=== PATIENT | female | born 1965 | race Hispanic/Latino ===

== ENCOUNTER 2019-01-12 08:10 | Inpatient (IN) | payer MEDICARE, MEDICAID ==
[2019-01-12 08:12] VITALS: BMI 26.6
[2019-01-12 08:13] VITALS: O2SAT 100
--- NOTE | 2019-01-12 08:50 | ED PDOC ---
HPI: Psych/Substance Abuse Time Seen by Provider: 01/12/19 08:11 Chief Complaint (Nursing): Psychiatric Evaluation Chief Complaint (Provider): Psychiatric Evaluation History Per: Patient History/Exam Limitations: no limitations Onset/Duration Of Symptoms: Hrs Current Symptoms Are (Timing): Still Present Suicide/Self Injury Attempted (Context): None Associated Symptoms: Suicidal Thoughts. denies: Suicidal Plan Additional Complaint(s): 53 year old female with a history of seizures presents to the ED for a psychiatric evaluation. Patient reports she wants to kill herself and wants to hurt her aid, Dorcas. She denies any intake of pills or injury to herself. Also denies fever, chest pain, cough, shortness of breath, nausea, vomiting, abdominal pain, diarrhea, urinary symptoms, bruising, numbness or weakness. PMD: Non [facility] Provider Past Medical History Reviewed: Historical Data, Nursing Documentation, Vital Signs Vital Signs: Last Vital Signs Temp 97.7 F 01/12/19 08:12 Pulse 88 01/12/19 08:12 Resp 17 01/12/19 08:12 BP 116/66 01/12/19 08:12 Pulse Ox 100 01/12/19 08:12 - Medical History PMH: Anxiety, Bipolar Disorder, Depression, HTN, Hypothyroidism, Migraine, Chronic Kidney Disease (STAGE 3 ACCORDING TO HISTORY ON CHART [facility]), Schizophrenia, Seizures (DOES NOT KNOW WHEN LAST SEIZURE WAS) Denies: Diabetes, Hepatitis, HIV, Sexually Transmitted Disease - Surgical History Surgical History: Tonsillectomy - Family History Family History: States: Unknown Family Hx - Social History Current smoker - smoking cessation education provided: No Alcohol: None Drugs: Denies - Immunization History Hx Tetanus Toxoid Vaccination: Yes Hx Influenza Vaccination: Yes Hx Pneumococcal Vaccination: No - Home Medications Home Medications: Ambulatory Orders Medication Instructions Recorded Sodium Bicarbonate Tab 650 mg PO TID #90 tab 11/23/15 Sevelamer Carbonate [Renvela] 800 mg PO 0700,1800 12/03/15 aMILoride [aMILoride 5 mg Tab] 5 mg PO BID 12/03/15 Aripiprazole [Abilify] 30 mg PO HS 01/12/19 Calcium Carbonate/Vitamin D3 1 tab PO DAILY 01/12/19 [Oysco 500-Vit D3 200 Tablet] Cholecalciferol (Vitamin D3) 2,000 unit PO DAILY 01/12/19 [Vitamin D3] Divalproex [Depakote DR] 500 mg PO TID 01/12/19 LORazepam [Ativan] 1 mg PO DAILY PRN 01/12/19 LORazepam [Ativan] 1 mg PO DAILY@1200 01/12/19 Levothyroxine [Synthroid] 75 mcg PO DAILY@0730 01/12/19 Nystatin [Nyamyc] 1 appl TOP Q12 01/12/19 QUEtiapine [Seroquel] 100 mg PO Q12 01/12/19 Topiramate [Topamax] 200 mg PO Q12 01/12/19 - Allergies Allergies/Adverse Reactions: Allergies Allergy/AdvReac Type Severity Reaction Status Date / Time No Known Allergies Allergy Verified 05/23/16 12:49 Review of Systems ROS Statement: Except As Marked, All Systems Reviewed And Found Negative Constitutional: Negative for: Fever Cardiovascular: Negative for: Chest Pain Respiratory: Negative for: Cough, Shortness of Breath Gastrointestinal: Negative for: Nausea, Vomiting, Abdominal Pain, Diarrhea Genitourinary Female: Negative for: Dysuria, Frequency, Incontinence, Hematuria Skin: Negative for: Bruising Neurological: Negative for: Weakness, Numbness Psych: Positive for: Suicidal ideation, Other (homicidal ideation ) Physical Exam - Reviewed Nursing Documentation Reviewed: Yes Vital Signs Reviewed: Yes - Physical Exam Appears: Positive for: Non-toxic, No Acute Distress Head Exam: Positive for: ATRAUMATIC, NORMAL INSPECTION, NORMOCEPHALIC Skin: Positive for: Normal Color, Warm, Dry. Negative for: Rash Eye Exam: Positive for: EOMI, Normal appearance, PERRL ENT: Positive for: Normal ENT Inspection Neck: Positive for: Normal, Painless ROM, Supple. Negative for: Decreased ROM Cardiovascular/Chest: Positive for: Regular Rate, Rhythm. Negative for: Murmur Respiratory: Positive for: Normal Breath Sounds. Negative for: Respiratory Distress Gastrointestinal/Abdominal: Positive for: Normal Exam, Soft. Negative for: Tenderness Back: Positive for: Normal Inspection Extremity: Positive for: Normal ROM. Negative for: Tenderness, Pedal Edema, Deformity Neurological/Psych: Positive for: Awake, Alert, Normal Tone, Oriented (x3) - Laboratory Results Result Diagrams: 01/12/19 08:55 01/12/19 08:55 Interpretation Of Abn Labs: no acute - ECG O2 Sat by Pulse Oximetry: 100 (RA) Pulse Ox Interpretation: Normal - Progress ED Course And Treament: 1515: Stable. AAOx3. Dr. June aware and will fu crisis. Medical Decision Making Medical Decision Making: Time: 841 Plan: EKG Alcohol serum CMP Drug screen Crisis evaluation Urine dipstick CBC w/ differential 1:1 Observation Reevaluation Scribe Attestation: Documented by Mandy Valenzuela, acting as a scribe for Endy Pink MD Provider Scribe Attestation: All medical record entries made by the Scribe were at my direction and personally dictated by me. I have reviewed the chart and agree that the record accurately reflects my personal performance of the history, physical exam, medical decision making, and the department course for this patient. I have also personally directed, reviewed, and agree with the discharge instructions and disposition. Disposition - Clinical Impression Clinical Impression: Depression - Patient ED Disposition Is Patient to be Admitted: Transfer of Care - Disposition Disposition: Transfer of Care Disposition Time: 15:15 Condition: STABLE Patient Signed Over To: Lorrei June
[2019-01-12 09:34] LABS: BASO # 0.1 K/uL (0.0-0.2); BASO % 0.9 % (0.0-2.0); EOS # 0.1 K/uL (0.0-0.7); EOS % 1.6 % (0.0-4.0); HEMOGLOBIN 14.6 g/dL (12.0-16.0); LYMPH # 0.8 K/uL (1.0-4.3); LYMPH % 14.7 % (20.0-40.0); MEAN CELL VOLUME 96.6 fl (81.0-99.0); MEAN CORPUSCULAR HEMOGLOBIN 31.9 pg (27.0-31.0); MEAN PLATELET VOLUME 8.5 fl (7.2-11.7); MONO # 0.7 K/uL (0.0-0.8); MONO % 11.9 % (0.0-10.0); NEUT # 4.1 K/uL (1.8-7.0); NEUT % 70.9 % (50.0-75.0); RBC 4.57 Mil/uL (3.80-5.20); RED CELL DISTRIBUTION WIDTH 12.4 % (11.5-14.5); WHITE BLOOD COUNT 5.7 K/uL (4.8-10.8)
[2019-01-12 09:43] LABS: ALB/GLOB RATIO 1.2 (1.0-2.1); ALBUMIN 3.5 g/dL (3.5-5.0); ALT/SGPT 28 U/L (9-52); AST/SGOT 29 U/L (14-36); BLOOD UREA NITROGEN 21 mg/dl (7-17); GFR NON-AFRICAN AMERICAN 52
[2019-01-12 10:00] LABS: BARBITURATES, UR NEGATIVE (NEGATIVE); BENZODIAZEPINES, UR NEGATIVE (NEGATIVE); OPIATES, UR NEGATIVE (NEGATIVE); PHENCYCLIDINE, UR NEGATIVE (NEGATIVE)
--- NOTE | 2019-01-12 17:52 | ED PDOC ---
- Laboratory Results Result Diagrams: 01/12/19 08:55 01/12/19 08:55 Lab Results: Total Bilirubin 0.4 mg/dl (0.2-1.3) 01/12/19 08:55 AST 29 U/L (14-36) 01/12/19 08:55 ALT 28 U/L (9-52) 01/12/19 08:55 Alkaline Phosphatase 81 U/L (38-126) 01/12/19 08:55 Total Protein 6.4 G/DL (6.3-8.2) 01/12/19 08:55 Albumin 3.5 g/dL (3.5-5.0) 01/12/19 08:55 Globulin 2.9 gm/dL (2.2-3.9) 01/12/19 08:55 Albumin/Globulin Ratio 1.2 (1.0-2.1) 01/12/19 08:55 - ECG O2 Sat by Pulse Oximetry: 100 (RA) Pulse Ox Interpretation: Normal Medical Decision Making Medical Decision Making: Time: 1500 --Patient care endorsed to this provider by Dr. Pink, pending crisis evaluation. Time: 1739 --expeller worker established contact with healthcare proxy, Phill Menezes. Patient has decision making capacity and agrees with plan and administration to [facility]. --Patient was medically optimized through previous physician's workup. Scribe Attestation: Documented by London Mendoza, acting as a scribe Matt June MD. Provider Scribe Attestation: All medical record entries made by the Scribe were at my direction and personally dictated by me. I have reviewed the chart and agree that the record accurately reflects my personal performance of the history, physical exam, medical decision making, and the department course for this patient. I have also personally directed, reviewed, and agree with the discharge instructions and disposition. Disposition - Clinical Impression Clinical Impression: Depression - POA Present On Arrival: None - Disposition Disposition: Admitted as In-Patient Disposition Time: 17:24 Condition: STABLE
[2019-01-12] MEDS ORDERED: Magnesium Hydroxide Susp 30 ml UD PO PRN (19:20)
[2019-01-12] MEDS ORDERED: DiphenhydrAMINE 50 mg/ml Inj IM PRN (19:20)
[2019-01-12] MEDS ORDERED: Alum-Mag Hydrox-Simethicone Susp (30 mL) PO PRN (19:20)
--- NOTE | 2019-01-12 19:45 | PCM.BM ---
<Sinai Zarate - Last Filed: 01/12/19 19:43> Treatment Plan Problems - Problems identified on initial assessmt Auditory Hallucinations Date Initiated: 01/12/19 Time Initiated: 19:44 Assessment reference: NA Status: Active Impaired Communication Date Initiated: 01/12/19 Time Initiated: 19:44 Assessment reference: NA Status: Active Treatment assets and liabiliti Patient Assests: cooperative, good support system (patient lives in a residential) Patient Liabilities: other (developmental delays, needs assistance with adl's, not self-reliant) - Milieu Protocol Maintain good personal hygiene: daily Encourage regular showers, daily Remind patient to perform daily oral care, daily Assist patient to perform ADL's, every shift Encourage regular showers, every shift Remind patient to perform daily oral care, every shift Assist patient to perform ADL's Maintain personal safety: daily Educate patient to report safety concerns to staff, daily Monitor environment for contraband/sharps, every shift Educate patient to report safety concerns to staff, every shift Monitor environment for contraband/sharps Medication safety: Monitor for expected outcome, potential side effects: daily, Assess barriers to learning: daily, Assess readiness for medication education: daily <Jass Rock - Last Filed: 01/17/19 13:51> Family Contact Family involvement: Famliy/SO not involved Family contact: Patient declines to allow family contact at present Family contact name: No family contact. - Outside Agency Agency 1 Care involvment: Following patient during stay, Information-sharing Agency contact name: [facility] contact number: [phone], Ally Rand - District Sales Representative. - Goals for Treatment Patient goals for treatment: Due to pt's developmental disability pt unable to form concrete goals for herself at this time. Discharge/Continuing Care - Education Needs Education Needs: Patient Medication, Patient Diagnosis/Disease Process, Patient Coping Skills, Patient Community resources, Patient Aftercare Safety Plan - Discharge Discharge Criteria: Tolerates medication w/o severe side effects, Free of Homicidal thoughts, Free of agitation, Ability to care for self, Reduction of target symptoms Discharge to:: Longterm - Treatment Team Participation Patient/Family/SO Statement: 01/17/19 13:55 Pt seen in treatment team on 01/15/19. Pt reported "I'm good" and asked to leave the unit on Friday. Pt requested that staff ask the residential so she can have more clothes. Pt reported she no longer wants to harm Dorcas and denied Hallucinations. Pt is superficial and denied SI/HI. Pt is oriented X4. Discussed with Family/SO: No Was Patient/Family/SO present at Treatment Team Meeting: Yes <Alexander Coyne - Last Filed: 01/18/19 08:38> - Diagnosis (1) Depression Status: Acute Interventions: 01/18/19 08:38 pharmacotherapy, psychotherapy
--- NOTE | 2019-01-12 20:02 | CARD ---
APPROVED REPORT Date of service: 01/12/2019 EKG Measurement Heart [id number] <Conclusion> Normal sinus rhythm Left axis deviation Abnormal ECG
[2019-01-12] MEDS: Divalproex 500 mg DR(BID formulation) PO SCH (21:26)
[2019-01-13] MEDS: Divalproex 500 mg DR(BID formulation) PO SCH ×3 (08:54→17:58)
--- NOTE | 2019-01-13 14:45 | PCM.PSYCH ---
Initial Psychiatric Evaluation - Initial Psychiatric Evaluation Type of Admission: Voluntary Legal Status: Capacity Chief Complaint (in patient's own words): I wanted to kill myself and kill Dorcas History of Present Illness and Precipitating Events: pt is 53 ys old female with previous psychiatric diagnosis of schizoaffective disorder and borderline intellectual function ,brought to ER by EMS after expressing suicidal and homicidal ideation , reportedly patient has been increasingly depressed, feeling hopeless and helpless, experiencing increase in the auditory hallucinations, on day she was brought to ER she became frustrated and started experiencing suicidal ideation and also homicidal ideation to one of the residents with thoughts to use a knife to hurt her on the unit patient presenting with depressed mood anxious and tearful affect, reported feeling hopeless . reported non command auditory hallucinations denied active thoughts of self harm on the unit Current Medications: Active Medications Generic Name Dose Route Start Last Admin Trade Name Freq PRN Reason Stop Dose Admin Acetaminophen 650 mg 01/12/19 19:20 Tylenol 325mg Tab PO Q4 PRN Pain, moderate (4-7) Al Hydrox/Mg Hydrox/Simethicone 30 ml 01/12/19 19:20 Maalox Plus 30 Ml PO Q4 PRN Dyspepsia Aripiprazole 30 mg 01/13/19 09:00 01/13/19 08:54 Abilify PO 30 mg DAILY LILA Administration Diphenhydramine HCl 50 mg 01/12/19 19:20 Benadryl IM Q6 PRN Extrapyramidal S/S Unable PO Diphenhydramine HCl 50 mg 01/12/19 19:20 Benadryl PO Q6 PRN Extrapyramidal Symptoms Divalproex Sodium 500 mg 01/12/19 21:00 01/13/19 13:[address](*Bid*) PO 500 mg TID LILA Administration Escitalopram Oxalate 5 mg 01/13/19 22:00 Lexapro PO HS LILA Haloperidol 5 mg 01/12/19 19:20 Haldol PO Q4 PRN Agitation Haloperidol Lactate 5 mg 01/12/19 19:20 Haldol IM Q4 PRN Agitation, Unable to Take PO Lorazepam 2 mg 01/12/19 19:20 Ativan IM Q4 PRN Anxiety/Agitation,Unable PO Lorazepam 2 mg 01/12/19 19:20 Ativan PO Q4 PRN Anxiety/Agitation Magnesium Hydroxide 30 ml 01/12/19 19:20 Milk Of Magnesia PO HS PRN Constipation Topiramate 200 mg 01/12/19 21:00 01/13/19 08:54 Topamax PO 200 mg BID LILA Administration Trazodone HCl 50 mg 01/13/19 14:30 Desyrel PO HS PRN Insomnia Past Psychiatric History - Past Psychiatric History Explanation of prior treatment: multiple inpatient hospitalizations for depression and suicidal ideation History of Abuse: non reported History of ETOH/Drug Use: non reported Pertinent Medical Hx (Current Medical&Sleep Prob, Allergies): Allergies Allergy/AdvReac Type Severity Reaction Status Date / Time No Known Allergies Allergy Verified 05/23/16 12:49 Sodium Bicarbonate Tab 650 mg PO TID #90 tab 11/23/15 Sevelamer Carbonate [Renvela] 800 mg PO 0700,1800 12/03/15 aMILoride [aMILoride 5 mg Tab] 5 mg PO BID 12/03/15 Aripiprazole [Abilify] 30 mg PO HS 01/12/19 Calcium Carbonate/Vitamin D3 [Oysco 500-Vit D3 200 Tablet] 1 tab PO DAILY 01/12/19 Cholecalciferol (Vitamin D3) [Vitamin D3] 2,000 unit PO DAILY 01/12/19 Divalproex [Depakote DR] 500 mg PO TID 01/12/19 LORazepam [Ativan] 1 mg PO DAILY PRN 01/12/19 LORazepam [Ativan] 1 mg PO DAILY@1200 01/12/19 Levothyroxine [Synthroid] 75 mcg PO DAILY@0730 01/12/19 Nystatin [Nyamyc] 1 appl TOP Q12 01/12/19 QUEtiapine [Seroquel] 100 mg PO Q12 01/12/19 Topiramate [Topamax] 200 mg PO Q12 01/12/19 Mental Status Examination - Personal Presentation Personal Presentation: Looks older than stated age Additional comments: pt appears unkempt - Affect Affect: Depressed Additional comments: inappropriate to thought content at times - Motor Activity Motor Activity: Psychomotor Agitation - Reliability in Providing Information Reliability in Providing Information: Poor, due to altered mood - Speech Speech: Tangential - Mood Mood: Depressed, Anxious - Formal Thought Process Formal Thought Process: Circumstantial, Perservation - Hallucinations/Delusions Hallucinations: Auditory - Obsessions/Compulsions Obsessions: No Compulsions: No - Cognitive Functions Orientation: Person Sensorium: Alert Attention/Concentration: Easily distracted Abstract Thinking: [place] Judgement: Imparied, as evidence by: Poor judgement - Risk Risk: Suicidal, Homicidal - Strength & Assets Inventory Strength & Assets Inventory: Cooperative - Limitations Additional comments: limited intellectual function DSM 5 DX - DSM 5 DSM 5 Diagnosis: schizoaffective disorder bipolar borderline intellectual function - Recommended/Plan of Treatment Treatment Recommendations and Plan of Treatment: pt will be restarted on depakote 500mg tid/ will follow up on depakote level abilify 30mg daily topamax 200mg bid start lexapro 5mg qhs / increase gradually group and supportive therapy internal medicine consult
--- NOTE | 2019-01-13 16:06 | CP.PCM.CON ---
History of Present Illness - History of Present Illness History of Present Illness: Medicine Consult Note 53-year-old female evaluated bedside. Poor historian due to mental delay. Denies PMH however medical history on chart from [facility] noted below. Denies current chest pain, SOB, dysuria, fever, chills, headache, change in vision, dizziness, nausea and vomiting. PMH: Anxiety, Bipolar Disorder, Depression, HTN, Hypothyroidism, Migraine, Chronic Kidney Disease (STAGE 3 ACCORDING TO HISTORY ON CHART FROM [facility]), Schizophrenia, Seizures (DOES NOT KNOW WHEN LAST SEIZURE WAS) Surgical Hx: tonsils, year unknown Social: denies Family Hx: denies Meds: denies ROS: all other symptoms reviewed and negative unless otherwise noted in HPI. Past Patient History - Infectious Disease Hx of Infectious Diseases: None - Past Medical History & Family History Past Medical History?: Yes - Past Social History Alcohol: None Drugs: Denies - CARDIAC Hx Cardiac Disorders: Yes Hx Hypertension: Yes - PULMONARY Hx Respiratory Disorders: No Hx Tuberculosis: No - NEUROLOGICAL Hx Seizures: Yes - HEENT Hx HEENT Problems: No - RENAL Hx Chronic Kidney Disease: Yes Other/Comment: chronic kidney disease - ENDOCRINE/METABOLIC Hx Hypothyroidism: Yes - HEMATOLOGICAL/ONCOLOGICAL Hx Blood Disorders: No Hx Human Immunodeficiency Virus (HIV): No - INTEGUMENTARY Hx Dermatological Problems: No - MUSCULOSKELETAL/RHEUMATOLOGICAL Hx Musculoskeletal Disorders: No - GASTROINTESTINAL Hx Gastrointestinal Disorders: No - GENITOURINARY/GYNECOLOGICAL Hx Genitourinary Disorders: No Hx Sexually Transmitted Disorders: No - PSYCHIATRIC Hx Substance Use: No - SURGICAL HISTORY Hx Surgeries: Yes Hx Tonsillectomy: Yes - ANESTHESIA Hx Anesthesia: Yes Hx Anesthesia Reactions: No Hx Malignant Hyperthermia: No Meds Allergies/Adverse Reactions: Allergies Allergy/AdvReac Type Severity Reaction Status Date / Time No Known Allergies Allergy Verified 05/23/16 12:49 - Medications Medications: Current Medications Acetaminophen (Tylenol 325mg Tab) 650 mg PO Q4 PRN PRN Reason: Pain, moderate (4-7) Al Hydrox/Mg Hydrox/Simethicone (Maalox Plus 30 Ml) 30 ml PO Q4 PRN PRN Reason: Dyspepsia Aripiprazole (Abilify) 30 mg PO DAILY LILA Last Admin: 01/13/19 08:54 Dose: 30 mg Diphenhydramine HCl (Benadryl) 50 mg IM Q6 PRN PRN Reason: Extrapyramidal S/S Unable PO Diphenhydramine HCl (Benadryl) 50 mg PO Q6 PRN PRN Reason: Extrapyramidal Symptoms Divalproex Sodium (Depakote Dr(*Bid*)) 500 mg PO TID [facility] Last Admin: 01/13/19 13:30 Dose: 500 mg Escitalopram Oxalate (Lexapro) 5 mg PO HS [facility] Haloperidol (Haldol) 5 mg PO Q4 PRN PRN Reason: Agitation Haloperidol Lactate (Haldol) 5 mg IM Q4 PRN PRN Reason: Agitation, Unable to Take PO Lorazepam (Ativan) 2 mg IM Q4 PRN PRN Reason: Anxiety/Agitation,Unable PO Lorazepam (Ativan) 2 mg PO Q4 PRN PRN Reason: Anxiety/Agitation Magnesium Hydroxide (Milk Of Magnesia) 30 ml PO HS PRN PRN Reason: Constipation Topiramate (Topamax) 200 mg PO BID [facility] Last Admin: 01/13/19 08:54 Dose: 200 mg Trazodone HCl (Desyrel) 50 mg PO HS PRN PRN Reason: Insomnia Physical Exam - Constitutional Appears: Non-toxic, Older Than Stated Age - Head Exam Head Exam: NORMAL INSPECTION - ENT Exam ENT Exam: Mucous Membranes Moist Additional comments: poor dental hygiene - Neck Exam Neck exam: Positive for: Normal Inspection - Respiratory Exam Respiratory Exam: NORMAL BREATHING PATTERN. absent: Respiratory Distress - Cardiovascular Exam Cardiovascular Exam: REGULAR RHYTHM - GI/Abdominal Exam GI & Abdominal Exam: absent: Guarding, Tenderness - Neurological Exam Neurological exam: Alert, Normal Gait - Skin Skin Exam: Normal Color Results - Vital Signs Recent Vital Signs: Last Vital Signs Temp 97.7 F 01/13/19 09:00 Pulse 83 01/13/19 09:00 Resp 18 01/13/19 09:00 BP 136/83 01/13/19 09:00 Pulse Ox 100 01/12/19 22:23 - Labs Result Diagrams: 01/12/19 08:55 01/12/19 08:55 Labs: Laboratory Results - last 24 hr 01/12/19 01/13/19 01/13/19 17:53 07:30 07:30 POC Glucose (mg/dL) 131 H Hemoglobin A1c 4.7 Triglycerides 76 Cholesterol 153 LDL Cholesterol Direct 48 HDL Cholesterol 92 H Thyroxine (T4) 8.54 TSH 3rd Generation 6.23 H Valproic Acid 01/13/19 07:30 POC Glucose (mg/dL) Hemoglobin A1c Triglycerides Cholesterol LDL Cholesterol Direct HDL Cholesterol Thyroxine (T4) TSH 3rd Generation Valproic Acid 67.5 Assessment & Plan - Assessment and Plan (Free Text) Plan: Anxiety, Bipolar Disorder, Depression, Schizophrenia -management as per psych HTN -resume home meds Hypothyroidism -TSH elevated, increase Levothyroxine 88mcg Migraine -monitor Chronic Kidney Disease III -resolved, normal kidney function as of 01/12 labs Seizures -status/details unknown
[2019-01-14] MEDS: Levothyroxine 88 MCG TAB PO SCH (06:06)
[2019-01-14] MEDS ORDERED: Levothyroxine 75 MCG TAB PO SCH (07:30)
[2019-01-14] MEDS: Calcium-Vit D 500 mg-200 Units Tab UD PO SCH (09:01)
[2019-01-14] MEDS: Divalproex 500 mg DR(BID formulation) PO SCH ×3 (09:02→17:37)
[2019-01-14] MEDS: Cholecalciferol 1,000 INTLU TAB PO SCH (09:03)
--- NOTE | 2019-01-14 12:27 | PCM.PYCHPN ---
Psychiatric Progress Note - Psychiatric Progress Note Patient seen today, length of contact: pt evaluated discussed with team chart reviewed Patient Chief Complaint: I feel anxious and that makes me depressed Problems Identified/Issues Discussed: pt on evaluation reported continues to be anxious and feels down relates that to being concerned about her relation with the peers in the [facility], pt at times presenting with inappropriate affect, limited insight , discussed increasing dose of lexapro for depression and anxiety, no reported side effects, supportive therapy provided and encouraged pt to attend groups pt denied active suicidal or homicidal ideation on the unit reported clearing off of the perceptual disturbances Medical Problems: multiple inpatient hospitalizations for depression and suicidal ideation DSM 5 Symptoms Update: pt on evaluation, presenting with anxious mood and affect, reported feeling worried that room mates Medication Change: Yes (increase lexapro) Medical Record Reviewed: Yes Mental Status Examination - Cognitive Function Orientation: Person, Place Memory: Intact Attention: WNL Concentration: Poor Association: Loose Fund of Knowledge: Poor Decription of patient's judgement and insights: partial insight fair judgment - Mood Mood: Depressed, Anxious - Affect Affect: Constricted, Depressed - Speech Speech: Slurred - Formal Thought Process Formal Thought Process: Circumstantial, Perservation - Suicidal Ideation Suicidal Ideation: No - Homicidal Ideation Homicidal Ideation: Yes Goal/Treatment Plan - Goal/Treatment Plan Need for Continued Stay: Severe depression anxiety, Discharge may exacerbated symptoms Progress Toward Problem(s) and Goals/Treatment Plan: continue depakote 500mg tid / depakote level 66 abilify 30mg daily topamax 200mg bid increase lexapro 10mg qhs group and supportive therapy internal medicine consult appreciated
[2019-01-15] MEDS: Divalproex 500 mg DR(BID formulation) PO SCH ×3 (09:52→17:52)
[2019-01-15] MEDS: Cholecalciferol 1,000 INTLU TAB PO SCH (09:56)
[2019-01-15] MEDS: Levothyroxine 88 MCG TAB PO SCH (09:56)
[2019-01-15] MEDS: Calcium-Vit D 500 mg-200 Units Tab UD PO SCH (09:56)
--- NOTE | 2019-01-15 12:32 | PCM.PYCHPN ---
Psychiatric Progress Note - Psychiatric Progress Note Patient seen today, length of contact: pt evaluated discussed with team chart reviewed Patient Chief Complaint: I feel better today Problems Identified/Issues Discussed: pt evaluated with treatment team, reported better mood, feeling less anxious and less depressed, presenting with brighter affect, no reported side effects with increasing the lexapro, no reported changes in sleep or appetite , attending groups and interacting with other peers pt denied active suicidal or homicidal ideation on the unit reported clearing off of the perceptual disturbances Medical Problems: multiple inpatient hospitalizations for depression and suicidal ideation DSM 5 Symptoms Update: schizoaffective disorder borderline intellectual function Medication Change: No Medical Record Reviewed: Yes Mental Status Examination - Cognitive Function Orientation: Person, Place Memory: Intact Attention: WNL Concentration: Poor Association: Loose Fund of Knowledge: Poor Decription of patient's judgement and insights: partial insight fair judgment - Mood Mood: Anxious - Affect Affect: Constricted, Depressed - Speech Speech: Slurred - Formal Thought Process Formal Thought Process: Circumstantial, Perservation - Suicidal Ideation Suicidal Ideation: No - Homicidal Ideation Homicidal Ideation: No Goal/Treatment Plan - Goal/Treatment Plan Need for Continued Stay: Severe depression anxiety, Discharge may exacerbated symptoms Progress Toward Problem(s) and Goals/Treatment Plan: continue depakote 500mg tid / depakote level 66 abilify 30mg daily topamax 200mg bid lexapro 10mg qhs group and supportive therapy
[2019-01-16] MEDS: Levothyroxine 88 MCG TAB PO SCH (07:06)
--- NOTE | 2019-01-16 09:26 | PCM.PYCHPN ---
Psychiatric Progress Note - Psychiatric Progress Note Patient seen today, length of contact: pt evaluated discussed with team chart reviewed Patient Chief Complaint: pt reports doing better on meds and is in good spirits .pt reports decrease in hallucinations and has not heard voices for many days .pt is compliant with meds and no side effects to meds. Medication Change: No Medical Record Reviewed: Yes Mental Status Examination - Cognitive Function Orientation: Person, Place Memory: Intact Attention: WNL Concentration: WNL Association: Loose Fund of Knowledge: Poor - Mood Mood: Anxious - Affect Affect: Constricted, Depressed - Speech Speech: Slurred - Formal Thought Process Formal Thought Process: Circumstantial, Perservation - Suicidal Ideation Suicidal Ideation: No - Homicidal Ideation Homicidal Ideation: No Goal/Treatment Plan - Goal/Treatment Plan Need for Continued Stay: Severe depression anxiety, Discharge may exacerbated symptoms Progress Toward Problem(s) and Goals/Treatment Plan: will continue to stabilize pt with abimariela and talon and engage pt in therapy and groups . D/c plans as per dr burton.
[2019-01-16] MEDS: Cholecalciferol 1,000 INTLU TAB PO SCH (09:36)
[2019-01-16] MEDS: Calcium-Vit D 500 mg-200 Units Tab UD PO SCH (09:37)
[2019-01-16] MEDS: Divalproex 500 mg DR(BID formulation) PO SCH ×3 (09:38→17:17)
[2019-01-17] MEDS: Levothyroxine 88 MCG TAB PO SCH (06:41)
[2019-01-17] MEDS: Cholecalciferol 1,000 INTLU TAB PO SCH (09:27)
[2019-01-17] MEDS: Calcium-Vit D 500 mg-200 Units Tab UD PO SCH (09:28)
[2019-01-17] MEDS: Divalproex 500 mg DR(BID formulation) PO SCH ×3 (09:28→17:17)
--- NOTE | 2019-01-17 13:15 | PCM.PYCHPN ---
Psychiatric Progress Note - Psychiatric Progress Note Patient seen today, length of contact: pt evaluated discussed with team chart reviewed Patient Chief Complaint: pt reports feeling less anxious and less irritible tolerating meds well.pt is doing better on meds and is in good spirits .pt reports decrease in hallucinations and has not heard voices for many days .pt is compliant with meds and no side effects to meds. Medication Change: No Medical Record Reviewed: Yes Mental Status Examination - Cognitive Function Orientation: Person, Place Memory: Intact Attention: WNL Concentration: WNL Association: Loose Fund of Knowledge: Poor - Mood Mood: Anxious - Affect Affect: Constricted, Depressed - Speech Speech: Slurred - Formal Thought Process Formal Thought Process: Circumstantial, Perservation - Suicidal Ideation Suicidal Ideation: No - Homicidal Ideation Homicidal Ideation: No Goal/Treatment Plan - Goal/Treatment Plan Need for Continued Stay: Severe depression anxiety, Discharge may exacerbated symptoms Progress Toward Problem(s) and Goals/Treatment Plan: will continue to stabilize pt with abilichrisy and depysabelte and engage pt in therapy and groups . D/c plans as per dr burton.
[2019-01-18] MEDS: Levothyroxine 88 MCG TAB PO SCH (06:52)
[2019-01-18] MEDS: Divalproex 500 mg DR(BID formulation) PO SCH ×2 (09:42→12:19)
[2019-01-18] MEDS: Cholecalciferol 1,000 INTLU TAB PO SCH (09:42)
[2019-01-18] MEDS: Calcium-Vit D 500 mg-200 Units Tab UD PO SCH (09:43)
[2019-01-18 10:50] VITALS: BP 139/83; PULSE 92; RESP 19; TEMP 98.4
--- NOTE | 2019-01-18 11:48 | PCM.PYCHDC ---
Mental Status Examination - Mental Status Examination Orientation: Person, Place Memory: Intact Mood: Neutral Affect: Broad Speech: Appropriate Attention: WNL Concentration: WNL Association: WNL Fund of Knowledge: WNL Formal Thought Process: Circumstantial Description of patient's judgement and insight: partial insight fair judgment Psychotic Thoughts and Behaviors: pt denied any perceptual disturbances, non elicited Suicidal Ideation: No Current Homicidal Ideation?: No Discharge Summary - Discharge Note Reason for Hospitalization: pt is 53 ys old female with previous psychiatric diagnosis of schizoaffective disorder and borderline intellectual function ,brought to ER by EMS after expressing suicidal and homicidal ideation , reportedly patient has been increasingly depressed, feeling hopeless and helpless, experiencing increase in the auditory hallucinations, on day she was brought to ER she became frustrated and started experiencing suicidal ideation and also homicidal ideation to one of the residents with thoughts to use a knife to hurt her on the unit patient presenting with depressed mood anxious and tearful affect, reported feeling hopeless . reported non command auditory hallucinations denied active thoughts of self harm on the unit Consultations:: List each consultation separately and include: 1. Reason for request. 2. Findings. 3. Follow-up Summary of Hospital Course include:: 1. Description of specific treatment plan utilized for patients during their course of treatmen. 2. Summarize the time- course for resolution of acute symptoms and/or regressed behaviors. 3. Describe issues identified and worked on during hospitalization. 4. Describe medication utilized. 5. Describe medical problems identified and treated. 6. Reassessment of suicide risk Summary of Hospital Course: pt on admission presented with depressed mood and affect, was started on lexapro, it was increased to 10mg also re started on depakote . depakote level was 66 group and supportive therapy was provided , pt gradually presented with brighter mood and affect, attended groups , participated in treatment, no reported side effects observed to have normal sleep and appetite on discharge mental status was stable pt denied any current suicidal or homicidal ideation denied perceptual disturbances - Diagnosis (1) Depression Current Visit: Yes Status: Acute - Final Diagnosis (DSM 5) Condition upon Discharge: STABLE DSM 5: schizoaffective disorder bipolar type borderline intellectual function Disposition: HOME/ ROUTINE Follow-up Treatment Plan: continue depakote 500mg tid / depakote level 66 abilify 30mg daily topamax 200mg bid lexapro 10mg qhs group and supportive therapy Prescriptions/Medication Reconciliation: ARIPiprazole [Abilify] 30 mg PO DAILY 30 Days #30 tab Divalproex [Depakote DR(*BID*)] 500 mg PO TID 30 Days #90 tcp Escitalopram [Lexapro] 10 mg PO HS 30 Days #30 tab Topiramate [Topamax] 200 mg PO BID 30 Days #60 tab traZODone [Desyrel] 50 mg PO HS PRN 30 Days #30 tab PRN Reason: Insomnia - Antipsychotic Medications Pt discharged on 2 or more routine antipsychotic medications: No
== END 2019-01-18 14:45 | disposition home or self-care (01) | DRG 885 ==
LOC: H.ER 08:10 → H.ERHOLD 17:24 → H.PSYCH 18:22
PROVIDERS: ADMIT Psychiatry & Neurology Psychiatry; ATTEND Psychiatry & Neurology Psychiatry
PROC: GZ51ZZZ Individual Psychotherapy, Behavioral (ICD-10-PCS; 2019-01-12)
PROC: GZ56ZZZ Individual Psychotherapy, Supportive (ICD-10-PCS; 2019-01-12)
PROC: GZHZZZZ Group Psychotherapy (ICD-10-PCS; principal; 2019-01-14)
DX: F25.0 Schizoaffective disorder, bipolar type (principal); R45.851 Suicidal ideations; I12.9 Hypertensive chronic kidney disease with stage 1 through stage 4 chronic kidney disease, or unspecified chronic kidney disease; N18.3 Chronic kidney disease, stage 3 (moderate); R45.850 Homicidal ideations; F41.9 Anxiety disorder, unspecified; G43.909 Migraine, unspecified, not intractable, without status migrainosus; R56.9 Unspecified convulsions; Z79.899 Other long term (current) drug therapy; E03.9 Hypothyroidism, unspecified; F79 Unspecified intellectual disabilities